=== PATIENT | female | born 1995 | race African-American/Black ===

== ENCOUNTER 2019-03-25 01:22 | Emergency (ER) | payer SELFPAY ==
[~2019-03-25] VITALS: Ht 165.1 cm; Wt 90.7 kg
--- NOTE | 2019-03-25 01:34 | NUR ---
BIBSELF C/O SOB X1 HR. -COUGH, -CP. O2 SAT 97% RA PT ALLERGIC TO DUST/MOLD, SYMPTOMS BEGAN WHILE SOMEONE WAS CLEANING
[2019-03-25] MEDS ORDERED: IPRATROPIUM NEB FS 0.5 MG/2.5 ML AMPUL.NEB ONE (01:47)
[2019-03-25] MEDS ORDERED: ALBUTEROL FS 2.5 MG/3 ML VIAL.NEB ONE (01:47)
[2019-03-25] MEDS ORDERED: IPRATROPIUM NEB FS 0.5 MG/2.5 ML AMPUL.NEB NEB ONE (02:00)
[2019-03-25] MEDS ORDERED: predniSONE 20 MG TABLET PO ONE (02:00)
[2019-03-25] MEDS ORDERED: ALBUTEROL FS 2.5 MG/3 ML VIAL.NEB NEB ONE (02:00)
[2019-03-25] MEDS ORDERED: predniSONE 20 MG TABLET ONE (02:01)
[2019-03-25 02:44] VITALS: BP 101/52
--- NOTE | 2019-03-25 02:44 | NUR ---
Patient discharged to home in stable condition. Rx and Written and verbal after care instructions given. Patient verbalizes understanding of instruction.
== END 2019-03-25 02:46 | disposition home or self-care (01) ==
LOC: ER 01:25
DX: J98.01 Acute bronchospasm (principal); F17.200 Nicotine dependence, unspecified, uncomplicated
CPT/HCPCS: 93005; 94640; 99283; 99406; J7512